=== PATIENT | male | born 1935 | race Two or more races ===

== ENCOUNTER 2017-08-26 16:27 | Inpatient (IN) | payer MEDICARE ==
[~2017-08-26] VITALS: Ht 177.8 cm; Wt 70.8 kg
--- NOTE | 2017-08-26 16:36 | NUR ---
[id number] FROM HOME: S/P SYNCOPE 2 HRS AGO. ALOC.
[2017-08-26] MEDS ORDERED: MULT-24 PO (16:47)
[2017-08-26] MEDS ORDERED: ASPI-1169 PO (16:47)
[2017-08-26] MEDS ORDERED: ATEN25TA PO (16:53)
[2017-08-26] MEDS ORDERED: ENAL5TAB PO (16:53)
[2017-08-26] MEDS ORDERED: IV NS 0.9% 500 ML BAG IV ONE ×3 (17:00→22:30)
--- NOTE | 2017-08-26 17:19 | NUR ---
ROTARY SOIL STABILIZER OPERATOR AT BEDSIDE
[2017-08-26 17:27] LABS: BASOPHILS # (AUTO) 0.1 /CMM (0.0-0.2); BASOPHILS % (AUTO) 0.5 % (0.0-2.0); HEMATOCRIT 37 % (39-51); HEMOGLOBIN 12.7 g/dL (13.5-17.5); LYMPHOCYTES # (AUTO) 0.7 /CMM (0.8-4.8); LYMPHOCYTES % (AUTO) 4.2 % (20.0-44.0); MEAN CORPUSCULAR HEMOGLOBIN 33 PG (26.0-33.0); MEAN CORPUSCULAR HGB CONC 35 g/dl (31.0-36.0); MEAN CORPUSCULAR VOLUME 94 fL (80-96); MONOCYTES # (AUTO) 0.7 /CMM (0.1-1.30); MONOCYTES % (AUTO) 4.1 % (2.0-12.0); NEUTROPHILS # (AUTO) 14.4 /CMM (1.8-8.9); NEUTROPHILS % (AUTO) 91.2 % (43.0-81.0); PLATELET COUNT (AUTO) 86 /CMM (150-450); RDW COEFFICIENT OF VARIATION 12.9 (11.5-15.0); RED BLOOD CELL COUNT(AUTO) 3.89 MIL/uL (4.5-6.0); WHITE BLOOD COUNT (AUTO) 15.9 K/uL (4.3-11.0)
[2017-08-26 17:37] LABS: CALCIUM, SERUM 8.1 mg/dL (8.5-10.1); CARBON DIOXIDE 21 mmol/L (21-32); CHLORIDE 103 mmol/L (98-107); GLUCOSE 276 mg/dL (74-106); POTASSIUM 3.8 mmol/L (3.5-5.1); SODIUM SERUM 137 mmol/L (136-145); UREA NITROGEN, BLOOD 35 mg/dL (7-18)
[2017-08-26 17:41] LABS: INR 1.43 (0.85-1.15)
[2017-08-26 17:43] LABS: ALANINE AMINOTRANSFERASE 15 U/L (12-78); ALBUMIN 3.1 g/dL (3.4-5.0); ALKALINE PHOSPHATASE 71 U/L (46-116); ASPARTATE AMINOTRANSFERASE 22 U/L (15-37); BILIRUBIN,DIRECT 0.5 mg/dL (0.0-0.2); BILIRUBIN,TOTAL 1.9 mg/dL (0.2-1.0); TOTAL PROTEIN, SERUM 6.4 g/dL (6.4-8.2)
[2017-08-26 17:45] LABS: TROPONIN I 0.054 ng/mL (0.00-0.056)
--- NOTE | 2017-08-26 18:05 | NUR ---
DR MORRIS ON THE PHONE WITH DR WASHBURN
--- NOTE | 2017-08-26 18:21 | NUR ---
SPOKE WITH THE TRANSFER CENTER AT [facility], FAXED HER FACESHEET AND PT'S H&P
--- NOTE | 2017-08-26 18:48 | NUR ---
URINE SMAPLE COLLECTED SENT TO LAB
[2017-08-26 18:52] LABS: APPEARANCE,URINE Clear (CLEAR); BILIRUBIN,URINE SMALL (NEGATIVE); BLOOD, URINE Large Ery/uL (NEGATIVE); COLOR,URINE Yellow (YELLOW); KETONES,URINE Trace (NEGATIVE); LEUKOCYTE ESTERASE ,URINE Negative (NEGATIVE); NITRITE, URINE Negative (NEGATIVE); PROTEIN,URINE >=300 mg/dl (NEGATIVE); UGLUCOSE 100 MG/DL mg/dL (NEGATIVE); UROBILINOGEN,URINE 0.2 EU/dL (0.2)
[2017-08-26] MEDS ORDERED: ENALAPRILAT DIHYD. (2.5MG/ML) 1.25 MG/ML VIAL IV ONE ×2 (19:00→19:07)
[2017-08-26 19:01] LABS: BACTERIA,URINE Few /HPF (None Seen); RBC,URINE 51-80 /HPF (0-2); SQUAMOUS EPITHELIAL CELL,UR Few /HPF (None Seen); WBC,URINE 0-2 /HPF (0-3)
--- NOTE | 2017-08-26 19:11 | NUR ---
REPORT RECEIVED FROM NAHED SILVA FOR KHANG.
--- NOTE | 2017-08-26 19:43 | NUR ---
CALLED NIKKIE HENDERSON SPOKE WITH SHERIDAN REGARDING A FOLLOW UP FOR PATIENT TRANSFER, SHE NOTIFIED ME THAT AT THIS POINT WE ARE JUST WAITING FOR A BED ASSIGNMENT. I PROVIDED HER OUR DIRECT ER # SO SHE CAN CALL BACK W INFO
--- NOTE | 2017-08-26 19:55 | NUR ---
RECIEVED A CALL BACK FROM SHERIDAN AT [facility], SHE NOTIFIED ME THAT THIS CASE IS DENIED DUE "TO STAFFING"
[2017-08-26] MEDS ORDERED: LEVETIRACETAM (500MG) 500 MG in IV NS 0.9% 100 ML IV ONE (20:00)
[2017-08-26] MEDS ORDERED: LEVETIRACETAM (500MG) 500 MG/5 ML VIAL IV ONE (20:14)
--- NOTE | 2017-08-26 20:32 | NUR ---
Emiliano arreguin in ED - 08/26/17 at 2033 by CONSTANTIN ATTEMPTED NEW IV X 3 WITHOT SUCCESS. PUT IN CALL FOR PICC LINE.
--- NOTE | 2017-08-26 20:33 | NUR ---
ATTEMPTED NEW IV X 3 WITHOUT SUCCESS. PUT IN CALL FOR PICC LINE.
[2017-08-26] MEDS ORDERED: ONDANSETRON HCL/PF 4 MG/2 ML VIAL IVP PRN (21:30)
[2017-08-26] MEDS ORDERED: ACETAMINOPHEN 650 MG/SUPP.RECT RC PRN (21:30)
--- NOTE | 2017-08-26 21:35 | NUR ---
ULTRASOUND AT BEDSIDE.
--- NOTE | 2017-08-26 21:46 | NUR ---
REPORT CALLED TO NAHED DOAN FOR KHANG IN ICU.
--- NOTE | 2017-08-26 22:00 | NUR ---
RN NOTES RECEIVED REPORT FROM HEAD OF TALENT MANAGEMENTNAHED SCHMIDT
--- NOTE | 2017-08-26 22:45 | NUR ---
PT TRANSPORTED TO ICU 257 VIA STRETCHER ON SOFTWARE DESIGN ANALYST WITH RN PER ACLS PROTOCOL.
--- NOTE | 2017-08-26 23:00 | NUR ---
RN NOTES PT ARRIVED VIA GURNEY FROM ER. PT IS CONFUSED, CANADIAN SPEAKING ONLY, CONTINUOUSLY TRYING TO PULL HIS IV AND EKG LINES. ON 2L NASAL CANNULA ONLY, SATURATING WELL, NO S/S OF RESP DISTRESS. CURRENTLY SR ON THE MONITOR, HR 80'S. SKIN IS INTACT. ON DIAPERS ONLY. LEFT HAND 20G IS FLUSHED AND PATENT, NO S/S OF INFILTRATION/INFECTION, DRESSING CDI. BED LOW AND LOCKED, SIDERAILS UP, CALL LIGHT WITHIN REACH. NEURO CHECKS TO BE DONE Q1H PER MD, WILL MONITOR
[2017-08-26 23:04] VITALS: BP 83/63
[2017-08-26 23:08] VITALS: BP 83/63
[2017-08-26] MEDS: IV NS 0.9% 1,000 ML IV PRN (23:22)
[2017-08-26] MEDS: methylPREDNISolone SOD SUCC 40 MG/ML VIAL IV SCH (23:22)
[2017-08-26 23:37] VITALS: BP 120/45
[2017-08-26 23:45] VITALS: BP 103/60
[2017-08-27] VITALS (43 sets, daily range): BP systolic 58–166; BP diastolic 28–113
[2017-08-27] MEDS: methylPREDNISolone SOD SUCC 40 MG/ML VIAL IV SCH ×6 (01:25→20:39)
[2017-08-27 05:02] LABS: HEMATOCRIT 35 % (39-51); HEMOGLOBIN 12.2 g/dL (13.5-17.5); LYMPHOCYTES # (AUTO) 0.7 /CMM (0.8-4.8); LYMPHOCYTES % (AUTO) 3.8 % (20.0-44.0); MEAN CORPUSCULAR HEMOGLOBIN 34 PG (26.0-33.0); MEAN CORPUSCULAR HGB CONC 35 g/dl (31.0-36.0); MEAN CORPUSCULAR VOLUME 98 fL (80-96); MONOCYTES # (AUTO) 0.3 /CMM (0.1-1.30); MONOCYTES % (AUTO) 1.5 % (2.0-12.0); NEUTROPHILS % (AUTO) 94.7 % (43.0-81.0); PLATELET COUNT (AUTO) 57 /CMM (150-450); RED BLOOD CELL COUNT(AUTO) 3.58 MIL/uL (4.5-6.0)
[2017-08-27 05:16] LABS: CALCIUM, SERUM 8.3 mg/dL (8.5-10.1); CARBON DIOXIDE 22 mmol/L (21-32); CHLORIDE 106 mmol/L (98-107); CREATININE 2.6 mg/dL (0.6-1.3); GLUCOSE 129 mg/dL (74-106); POTASSIUM 4.7 mmol/L (3.5-5.1); SODIUM SERUM 139 mmol/L (136-145); UREA NITROGEN, BLOOD 47 mg/dL (7-18)
[2017-08-27 05:31] LABS: CHOLESTEROL 142 mg/dL (<200); PHOSPHORUS 4.4 mg/dL (2.5-4.9); TRIGLYCERIDES 124 mg/dL (30-150)
[2017-08-27 05:32] LABS: HDL CHOLESTEROL 40 mg/dL (40-60); LDL 90 mg/dL (0-99); THYROID STIMULATING HORMONE 0.711 uIU/mL (0.358-3.74)
[2017-08-27 05:51] LABS: LYMPHOCYTES % (MANUAL) 6 % (16-48); NEUTROPHILS % (MANUAL) 94 (42-76)
--- NOTE | 2017-08-27 06:15 | NUR ---
RN CLOSING NOTES PT REMAINS STABLE OF THE MOMENT. ALL DUE MEDS GIVEN, AM CARE PROVIDED. WILL ENDORSE KHANG TO AM RN
[2017-08-27] MEDS ORDERED: PANTOPRAZOLE 40 MG VIAL IV SCH (07:30)
--- NOTE | 2017-08-27 10:23 | NUR ---
HOB MILL OPERATOR NOTES DR SALINAS AT BEDSIDE, PT SEEN AND EVALUATED. FAMILY MEMBER AT BEDSIDE,AWAITING FOR ORDERS. PENDING TRANSFER TO [facility]. CM AWARE.
[2017-08-27] MEDS: LEVETIRACETAM (500MG) 500 MG in IV NS 0.9% 100 ML IV SCH ×2 (11:05→21:11)
[2017-08-27] MEDS: IV NS 0.9% 1,000 ML IV PRN (11:06)
--- NOTE | 2017-08-27 13:10 | NUR ---
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 Increased volume intraventricular and diffuse subarachnoid hemorrhage. Underlying atrophy with white matter disease compatible with chronic small vessel ischemia. dr murillo notified, no new orders received. dr henderson notified with orders
[2017-08-27 17:00] LABS: INR 1.24 (0.87-1.13)
--- NOTE | 2017-08-27 18:32 | NUR ---
RN NOTES PT RESTING IN BED, ASLEEP AT THIS TIME. EASILY AROUSABLE TO VERBAL AND TACTILE STIMULI, WITH CONFUSION. PT NOTED WITH EPISODES OF BEING AWAKE ALERT TO BEING DROWSY THROUGHOUT THE SHIFT. ABLE TO MOVE ALL EXTREMITIES AT UPPER AND LOWER EXTREMITIES AT THIS TIME. PT NOTED KICKING BLANKETS. BILATERAL SOFT WRIST RESTRAINTS IN PLACE, PT HAS SEVERAL ATTEMPTS OF REMOVING EKG LEADS AND IV LINES. RELEASED AND CHECKED FOR CIRCULATION REGULARLY. FAMILY MEMBERS AT BEDSIDE. DUE MEDS GIVEN. PT KEPT COMFORTABLE. PER WELDING ENGINEER STILL AWAITING BED FOR NIKKIE RASTAFARIAN. DAUGHTER MADISON AND BASSEM AWARE. DR MALAVE AND DR SALINAS AWARE. NEUROCHECK Q1H. CLOSELY MONITORED FOR ANY CHANGES
--- NOTE | 2017-08-27 19:20 | NUR ---
RN NOTES 2 UNITS PLATELET GIVEN, NO ADVERSE REACTION NOTED DURING TRANSFUSION. NO SEIZURE NOTED. PADDED RAILS IN PLACE. ENDORSED TO NENO DOCKERY FOR CONTINUITY OF CARE
--- NOTE | 2017-08-27 19:45 | NUR ---
SHIPPING HAND: RECEIVED PT AWAKE WT CONFUSION. ABLE TO FOLLOW SIMPLE COMMANDS AT TIMES. ON 2L 02 VIA NC WT NO ACUTE DISTRESS. NO EVIDENCE OF DISCOMFORT. SR ON MONITOR. AFEBRILE. RESTLESS AND WT EPISODES OF TRYING TO REMOVE TUBINGS. BILAT. SOFT WRIST RESTRAINTS IN PLACE WT SKIN CIRCULATION WNL. SAFETY AND SEIZURE PRECAUTIONS NOTED. WILL CONTINUE TO MONITOR.
--- NOTE | 2017-08-27 21:30 | NUR ---
AIR CONDITIONING MECHANIC: FAMILY AT BEDSIDE. PT IS ABLE TO FOLLOW SIMPLE COMMANDS WT CONFUSION. PER DAUGHTER, SAME FEW HRS AGO WHEN THEY VISITED HIM. CONTINUES TO BE RESTLESS. BILAT. SOFT WRIST RESTRAINTS IN PLACE WT SKIN AND CIRCULATION WNL. WILL CONTINUE TO MONITOR.
--- NOTE | 2017-08-27 23:00 | NUR ---
PANTS CLOSER: NOTED DIAPER WT VERY MINIMAL URINE. BLADDER SCANNED NOTED WT MORE THAN 600CC URINE RETAINED. MD MADE AWARE AND ORDERED F/C. NOTED AND CARRIED OUT.
[2017-08-28] VITALS (8 sets, daily range): BP systolic 80–156; BP diastolic 49–122
[2017-08-28] MEDS: methylPREDNISolone SOD SUCC 40 MG/ML VIAL IV SCH (01:17)
[2017-08-28] MEDS ORDERED: MORPHINE SULFATE INJ 4 MG/ML DISP.SYRIN ONE (02:19)
--- NOTE | 2017-08-28 02:20 | NUR ---
LICENSED OPTICIAN: CHARGE NURSE ED CALLED AND NOTIFIED DR. SERNA THAT PT IS MORE RESTLESS AT THIS TIME, TRIED TO REMOVE NUÑEZ CATHETER WT FACIAL GRIMACE AND MOANING. WT NEW ORDER FOR MORPHINE 2MG IVP X 1.
[2017-08-28] MEDS ORDERED: MORPHINE SULFATE INJ 2 MG/ML DISP.SYRIN IV ONE (02:30)
--- NOTE | 2017-08-28 02:36 | NUR ---
SUPERVISOR PRODUCT INSPECTION: ABG ORDERED FOR INCREASING RESTLESSNESS, ST ON THE MONITOR WT HR IN 120s-130s, NOTED LABORED BREATHING, 02 SAT IN THE HIGH 80s BUT NOT GOOD WAVEFORM. PLACED ON FACE MASK AT 8L O2. HOB AT 35 DEGREES. CONTINUOUS MONITORING RENDERED.
--- NOTE | 2017-08-28 02:50 | NUR ---
DUCT LAYER SUPERVISOR: ABG WT CRITICAL RESULT. CHARGE NURSE CALLED ER DOCTOR FOR FURTHER EVALUATION AND STAT INTUBATION.
--- NOTE | 2017-08-28 03:00 | NUR ---
LABEL FUSER TENDER: MORPHINE GIVEN FOR RESTLESSNESS, FACIAL GRIMACE AND MOANING. Addendum: 08/28/17 at 0535 by NENO SANABRIA RN CORRECTION FOR 08/28/17 0300: MORPHINE WAS GIVEN AT 0230 NOT 0300.
[2017-08-28 03:03] LABS: BASOPHILS # (AUTO) 0.1 /CMM (0.0-0.2); BASOPHILS % (AUTO) 0.3 % (0.0-2.0); HEMATOCRIT 27 % (39-51); HEMOGLOBIN 8.8 g/dL (13.5-17.5); LYMPHOCYTES # (AUTO) 1.7 /CMM (0.8-4.8); LYMPHOCYTES % (AUTO) 6.8 % (20.0-44.0); MEAN CORPUSCULAR HEMOGLOBIN 33 PG (26.0-33.0); MEAN CORPUSCULAR HGB CONC 33 g/dl (31.0-36.0); MEAN CORPUSCULAR VOLUME 101 fL (80-96); MONOCYTES # (AUTO) 0.5 /CMM (0.1-1.30); MONOCYTES % (AUTO) 2.1 % (2.0-12.0); NEUTROPHILS # (AUTO) 22.4 /CMM (1.8-8.9); NEUTROPHILS % (AUTO) 90.8 % (43.0-81.0); PLATELET COUNT (AUTO) 165 /CMM (150-450); RDW COEFFICIENT OF VARIATION 14.8 (11.5-15.0); RED BLOOD CELL COUNT(AUTO) 2.68 MIL/uL (4.5-6.0); WHITE BLOOD COUNT (AUTO) 24.6 K/uL (4.3-11.0)
--- NOTE | 2017-08-28 03:06 | NUR ---
LIQUOR BRIDGE OPERATOR: PT INTUBATED BY DR. GOMEZ. GIVEN ETOMIDATE 10MG AND ROCK 60MG BY POWER TRANSMISSION ENGINEER ROXANA Salomon
[2017-08-28] MEDS ORDERED: SODIUM BICARBONATE SYR 50 MEQ/50 ML DISP.SYRIN ONE ×3 (03:12→03:34)
[2017-08-28 03:15] LABS: INR 1.24 (0.87-1.13)
--- NOTE | 2017-08-28 03:15 | NUR ---
CORN SHELLER: PT WENT BRADYCARDIAC DURING INTUBATION WT HR IN THE 30s AND CODED. CHASIDY DAWKINS INITIATED. Addendum: 08/28/17 at 0523 by NENO SANABRIA RN ADDITIONAL ENTRY FOR 08/28/17 0315: PT WENT ASYSTOLE AFTER BEING BRADYCARDIC DURING INTUBATION. CHASIDY DAWKINS PROTOCOL INITIATED (SEE CHASIDY DAWKINS #1 SHEET). TIME CODE ENDED AT 319 AND WAS SUCCESSFUL.
[2017-08-28 03:16] LABS: ALANINE AMINOTRANSFERASE 51 U/L (12-78); ALBUMIN 2.8 g/dL (3.4-5.0); ALKALINE PHOSPHATASE 54 U/L (46-116); ASPARTATE AMINOTRANSFERASE 58 U/L (15-37); BILIRUBIN,TOTAL 0.8 mg/dL (0.2-1.0); CALCIUM, SERUM 7.9 mg/dL (8.5-10.1); CHLORIDE 108 mmol/L (98-107); CREATININE 2.9 mg/dL (0.6-1.3); GLUCOSE 262 mg/dL (74-106); MAGNESIUM 2.5 mg/dL (1.8-2.4); PHOSPHORUS 7.6 mg/dL (2.5-4.9); POTASSIUM 3.8 mmol/L (3.5-5.1); SODIUM SERUM 143 mmol/L (136-145); TOTAL PROTEIN, SERUM 5.9 g/dL (6.4-8.2); UREA NITROGEN, BLOOD 69 mg/dL (7-18)
--- NOTE | 2017-08-28 03:16 | NUR ---
TRAUMA MANAGER: RELAYED TO DR. GOMEZ AT BEDSIDE C02 RESULT. LAB DRAWN PRIOR TO INTUBATION.
[2017-08-28 03:18] LABS: CARBON DIOXIDE 10 mmol/L (21-32)
--- NOTE | 2017-08-28 03:20 | NUR ---
MICROSTRATEGY ARCHITECT: PT IS OFF RESTRAINTS AT THIS TIME, S/P INTUBATION AND CODE BLUE. RN AND RT AT BEDSIDE AT ALL TIMES WT NO EXTREMITY MOVEMENT OR EPISODE OF TRYING TO REACH TUBINGS.
[2017-08-28 03:23] LABS: BAND % (MANUAL) 2 % (0.0-5.0); EOSINOPHILS % (MANUAL) 1 % (0-4); LYMPHOCYTES % (MANUAL) 4 % (16-48); MONOCYTES % (MANUAL) 2 % (0-11.0); NEUTROPHILS % (MANUAL) 91 (42-76)
--- NOTE | 2017-08-28 03:27 | NUR ---
MOTOR RACER: PT NOTED V.FIB ON SQUEEZER OPERATOR AND 2ND CODE BLUE INITIATED (SEE CODE BLUE SHEET #2). CODE BLUE ENDED SUCCESSFUL AT 0340.
--- NOTE | 2017-08-28 03:28 | NUR ---
MAINTENANCE MECHANIC ENGINE: GUSTAVO MUSIC DIRECTOR SPOKE WT DAUGHTER MADISON AND MADE AWARE THAT PT IS CODING AGAIN. DAUGHTER SAID SHE WANTS EVERYTHING TO BE DONE/REMAIN FULL CODE.
[2017-08-28] MEDS ORDERED: Sodium Bicarbonate 150 MEQ in IV D5W 1,000 ML IV SCH (03:30)
[2017-08-28] MEDS ORDERED: SODIUM BICARBONATE SYR 50 MEQ/50 ML DISP.SYRIN IV ONE ×3 (03:30→08:31)
[2017-08-28 03:40] LABS: TROPONIN I 0.111 ng/mL (0.00-0.056)
[2017-08-28 03:53] LABS: ABG BASE EXCESS -19.4 mmol/L; ABG PCO2 31.3 mmHg (35.0-45.0); ABG PH 7.086 (7.350-7.450); ABG PO2 106.1 mmHg (75.0-100.0); AaDO2 171.9 mmHg; COHb 0.2 % (0.5-1.5); MetHb 0.7 % (0.0-1.5); O2Hb 93.2 % (94.0-97.0); SITE, ABG Left Radial; VENT MODE, BG SIMPLE MASK 6L
--- NOTE | 2017-08-28 03:58 | NUR ---
RT CALLED TO PT BEDSIDE FOR INTUBATION. ATTEMPTED WITH MAC 4, PT INTUBATED WITH GLIDESCOPE 7.5@23CM ETT.PT CODED AT 0315, CPR PREFORMED AND PT VENTILATED VIA AMBU BAG. PT PLACED ON VENT. PT CODED AT 0327 CPR PREFORMED AND PT VENTILATED VIA AMBU BAG. RETURN OF SPONTANEOUS CIRCULATION AND PLACED ON VENT AT ABOUT 0340. PT VENT SETTINGS AC 20 500 100% +5. ALARMS CHECKED AND AUDIBLE. DISCONNECT ALARMS CHECKED. VENT PLUGGED IN RED OUTLET. Addendum: 08/28/17 at 0404 by HUMZA CARBALLO RT Amended: Links added.
[2017-08-28] MEDS ORDERED: ETOMIDATE 2 MG/ML VIAL IV ONE (04:00)
--- NOTE | 2017-08-28 04:09 | NUR ---
ASSOCIATE FINANCIAL ADVISOR: PT NOTED ASYSTOLE ON MONITOR AND NO PULSE PALPATED. CODE BLUE # 3 INITIATED. AT 0411, DAUGHTER MADISON AND AT BEDSIDE AND SAID TO STOP CPR. CPR STOPPED, UNABLE TO PALPATE PULSE AND BP UNAPPRECIATED. PRONOUNCED BY DR. GOMEZ.
[2017-08-28] MEDS ORDERED: ROCURONIUM BROMIDE 50 MG/5 ML IV ONE (04:10)
--- NOTE | 2017-08-28 04:36 | NUR ---
SHERIFFS DETECTIVE: CALLED [facility] AND SPOKE WT JOHN AND REPORTED WT HISTORY OF PT. CASE CLOSED, NOT GOOD CANDIDATE FOR TISSUE DONATION PER STAFF. .
--- NOTE | 2017-08-28 04:42 | NUR ---
ARC WELDER APPRENTICE: CALLED CONSERVATION COORDINATOR'S OFFICE TO REPORT AND SPOKE WT PATRICE. RELAYED PT HISTORY AND OTHER PERTINENT DETAILS. PER PATRICE, NOT A CONSERVATION COORDINATOR'S CASE.
--- NOTE | 2017-08-28 05:19 | NUR ---
TIMERS INSPECTOR: ANDREA FROM [facility] CALLED AND SAID REMAINS WILL BE PICKED UP BY 0630. FAMILY AT BEDSIDE MADE AWARE.
[2017-08-28] MEDS ORDERED: EPINEPHRINE (1:10,000) SYRINGE 1 MG/10 ML DISP.SYRIN IVP ONE ×2 (08:30→08:31)
[2017-08-28] MEDS ORDERED: ATROPINE SULFATE 1 MG/10 ML DISP.SYRIN IV ONE (08:30)
--- NOTE | 2017-08-28 08:30 | NUR ---
PT I.D. BY ARM BAND WITH TWO RNS AND ARMBAND MATCHES CHART. BODY RELEASED TO [employer]. THERE IS A BELONGINGS LIST IN CHART BUT THERE ARE NO BELONGINGS AT BEDSIDE. NURSING APPLICATION INTEGRATOR JAIR GAXIOLA
== END 2017-08-28 04:11 | disposition expired | DRG 64 ==
LOC: ER 16:31 → ICU 21:30
PROC: 30233R1 Transfusion of Nonautologous Platelets into Peripheral Vein, Percutaneous Approach (ICD-10-PCS; principal; 2017-08-27)
PROC: 05H533Z Insertion of Infusion Device into Right Subclavian Vein, Percutaneous Approach (ICD-10-PCS; 2017-08-28)
PROC: B546ZZA Ultrasonography of Right Subclavian Vein, Guidance (ICD-10-PCS; 2017-08-28)
PROC: 5A2204Z Restoration of Cardiac Rhythm, Single (ICD-10-PCS; 2017-08-28)
DX: I60.9 Nontraumatic subarachnoid hemorrhage, unspecified (principal); J69.0 Pneumonitis due to inhalation of food and vomit; I21.A1 Myocardial infarction type 2; I46.9 Cardiac arrest, cause unspecified; J96.90 Respiratory failure, unspecified, unspecified whether with hypoxia or hypercapnia; D68.9 Coagulation defect, unspecified; E87.2 Acidosis; K72.00 Acute and subacute hepatic failure without coma; N17.0 Acute kidney failure with tubular necrosis; Z95.1 Presence of aortocoronary bypass graft; Z79.01 Long term (current) use of anticoagulants; I25.10 Atherosclerotic heart disease of native coronary artery without angina pectoris; Z79.82 Long term (current) use of aspirin; Z79.899 Other long term (current) drug therapy; I12.9 Hypertensive chronic kidney disease with stage 1 through stage 4 chronic kidney disease, or unspecified chronic kidney disease; N18.9 Chronic kidney disease, unspecified; I71.9 Aortic aneurysm of unspecified site, without rupture; D69.6 Thrombocytopenia, unspecified; R31.29 Other microscopic hematuria
CPT/HCPCS: 36415; 36600; 70450-TC; 71045-TC; 76770-TC; 80048-TC; 80053-TC; 80061-TC; 80076-TC; 81000-TC; 82803-TC; 82962-TC; 83735-TC; 84100-TC; 84443-TC; 84484-TC; 85025-TC; 85610-TC; 85730-TC; 86850-TC; 87081-TC; 92950-TC; 93307-TC; 94002-TC; A4606; C9113; J0171; J0461; J1953; J2270; J2920; J3490; J7030; J7040; J7070; P9016-BL; P9034-BL; Z7610